=== PATIENT | female | born 1970 | race Caucasian/White ===

== ENCOUNTER 2016-11-18 20:49 | Emergency (ER) | payer OTHER ==
[~2016-11-18 20:49] MED LIST: BENZ100 PO; CLIN1CAP5 PO; CORTIS10A LEFT EAR; DICL50TA3 PO
[2016-11-18 21:07] VITALS: BP 129/70; PULSE 80; RESP 20; TEMP 98.6; O2SAT 99
--- NOTE | 2016-11-18 21:40 | PD ---
HPI Chief Complaint: Musculoskeletal Complaint Time Seen by Provider: 21:34 Travel History International Travel<30 days: No Contact w/Intl Traveler<30days: No Traveled to known affect area: No History of Present Illness HPI 46-year-old female presents to the emergency department by private transportation for evaluation of left foot pain for a couple of days after twisting the foot and cough. Patient has history of bronchitis and previous pneumonia. Patient does smoke cigarettes. Patient states cough is productive of yellow-green sputum. No fever or chills. Patient denies other injury or other symptoms at this time. Foot pain with palpation and weightbearing as 8/ 10 in intensity. Patient states that pain is isolated to the left lateral mid foot. Patient has noted some swelling but no ecchymosis erythema or increased warmth. Patient is also had no claudication pallor or coolness of the left lower extremity. PFSH Past Medical History Narrative Medical Anemia platelet dysfunction anxiety asthma bronchitis pneumonia hepatitis C lumbar disc disease migraines last period 2014 tonsillectomy tobacco use nursing notes reviewed Anemia: Yes Asthma: Yes Blood Disorders: Yes ("PLATELET DYSFUNCTION, DON'T CLOT WELL") Anxiety: Yes (DX IN 2006) Cancer: No Cardiovascular Problems: No Chest Pain: Yes ("SOMETIMES" STATED 11/18/16) Diminished Hearing: No Endocrine: No Hepatitis: Yes (HEP C) Herniated Disk: Yes ("A COUPLE OF ANNULUS BULGES AND DEGENERATIVE DISCS IN LOWER BACK") Immune Disorder: No Musculoskeletal: No Neurologic: No Psychiatric: No Reproductive: No Respiratory: Yes (BRONCHITIS) Migraines: Yes Pneumonia: Yes (X2) Influenza Vaccination: No ?: Not LMP: "THEY STOPPED IN 2014" : 3 Para: 2 Miscarriage: 1 Past Surgical History Section: Yes (2008) Gynecologic Surgery: Yes (C SECTION) Oral Surgery: Yes (TONSILLECTOMY) Tonsillectomy: Yes Other Surgery: Yes Family History Family Breast Cancer: Yes (SISTER, MOTHER, MATERNAL GRANDMOTHER) Family Myocardial Infarction: Yes (PATERNAL GRANDMOTHER) Family Hypercholesterolemia: Yes (MOTHER) Social History Alcohol Use: Yes (SOCIAL) Tobacco Use: Yes (1 PPD) Substance Use: No Allergies-Medications (Allergen,Severity, Reaction): Coded Allergies: Penicillin (Verified Allergy, Severe, UNKNOWN, 11/18/16) Reported Meds & Prescriptions Reported Meds & Active Scripts Active No Active Prescriptions or Reported Medications Review of Systems Except as stated in HPI: all other systems reviewed are Neg Physical Exam Narrative GENERAL: Well-developed well-nourished female in no acute distress no respiratory distress; triage vital signs values in normal range SKIN: Warm and dry. HEAD: Normocephalic. EYES: No scleral icterus. No injection or drainage. NECK: Supple, trachea midline. No JVD or lymphadenopathy. CARDIOVASCULAR: Regular rate and rhythm without murmurs, gallops, or rubs. RESPIRATORY: Breath sounds equal bilaterally with bilateral wheezing. No accessory muscle use. GASTROINTESTINAL: Abdomen soft, non-tender, nondistended. MUSCULOSKELETAL: No cyanosis, or edema. Left foot no pallor no coolness dorsalis pedis pulse 2+ to palpation no induration no erythema no increased warmth point tenderness to palpation over the fifth metatarsal base proximally and distally extremity is neurovascular tendon intact. BACK: Nontender without obvious deformity. No CVA tenderness. Data Data Last Documented VS Vital Signs Date Time Temp Pulse Resp B/P Pulse Ox O2 Delivery O2 Flow Rate FiO2 11/18/16 21:54 88 18 97 Room Air 11/18/16 21:07 98.6 129/70 Orders Chest, Single Ap (11/18/16 ) Foot, Complete (Uvr1isl) (11/18/16 ) Albuterol-Ipratropium Neb (Duoneb Neb) (11/18/16 21:45) [facility] Medical Decision Making Medical Screen Exam Complete: Yes Emergency Medical Condition: Yes Medical Record Reviewed: Yes Interpretation(s) Last Impressions Foot X-Ray 11/18/16 0000 Signed Impressions: Service Date/Time: Friday, November 18, 2016 21:47 - CONCLUSION: Hallux valgus. Otherwise negative exam. Jesus Manuel Sevilla MD Chest X-Ray 11/18/16 0000 Signed Impressions: Service Date/Time: Friday, November 18, 2016 21:45 - CONCLUSION: The lungs are clear. Jesus Manuel Sevilla MD Differential Diagnosis Exacerbation COPD, bronchitis, pneumonia, tobaccoism foot contusion metatarsal fracture; also to consider CHF ACS Narrative Course X-ray of the left foot x-ray of the chest ordered and DuoNeb updraft 1 ordered @ 22:25 lung sound improved post updraft Diagnosis Primary Impression: Strain of foot, left Qualified Code: S96.912A - Strain of foot, left, initial encounter Additional Impression: Bronchitis Referrals: Primary Care Physician call for appointment Patient Instructions: General Instructions Additional Instructions: Use inhaler as needed for wheezing/shortness of breath associated with bronchitis Complete Medrol dosepak taper; do not use ibuprofen/Advil/Motrin/naproxen/Aleve while taking this medication Increase fluid hydration May use Cas bandage to support left foot intermittently over the next once 2 days do not sleep with Cas bandage in place Elevate foot for comfort Follow-up with your primary care provider Return to the emergency department for any concerns or change in condition Discontinue tobacco use Med/Other Pt SpecificInfo: Prescription(s) given Scripts Albuterol 6.7 GM Inh (Proventil Hfa 6.7 GM Inh)90 Mcg/Act Aer2 Puff INH Q4-6H PRN (SHORTNESS OF BREATH) #1 INHALER Ref 0 Prov:Karla Vega MD 11/18/16 Methylprednisolone Dosepak (Medrol Dosepak)4 Mg Dspk4 Mg PO DIRECTED #1 DSPK Ref 0 Per Pharmacist direction Prov:Karla Vega MD 11/18/16 Disposition: 01 DISCHARGE HOME Condition: Stable Karla Vega MD Nov 18, 2016 21:40
[2016-11-18] MEDS ORDERED: RESP: ALBUTEROL 2.5 MG/IPRATROPIUM 0.5 MG NEB (SCH) NEB ONE (21:45)
[2016-11-18 21:54] VITALS: PULSE 88; RESP 18; O2SAT 97
--- NOTE | 2016-11-18 22:11 | RADHPO ---
EXAM DATE/TIME: 11/18/2016 21:45 [facility] COMPARISON: No previous studies available for comparison. INDICATIONS : Chest pain cough MEDICAL HISTORY : None. SURGICAL HISTORY : None. ENCOUNTER: ACUITY: 2 days PAIN SCORE: 5/10 LOCATION: Bilateral chest FINDINGS: A single view of the chest demonstrates the lungs to be symmetrically aerated without evidence of mas s, infiltrate or effusion. The cardiomediastinal contours are unremarkable. Osseous structures are intact. CONCLUSION: The lungs are clear. Jesus Manuel Sevilla MD on November 18, 2016 at 22:09 Board Certified Radiologist. This report was verified electronically.
--- NOTE | 2016-11-18 22:12 | RADHPO ---
EXAM DATE/TIME: 11/18/2016 21:47 [facility] COMPARISON: No previous studies available for comparison. INDICATIONS : Left foot pain MEDICAL HISTORY : None. SURGICAL HISTORY : None. ENCOUNTER: Initial ACUITY: 2 days PAIN SCORE: 5/10 LOCATION: Left lateral FINDINGS: Bone density is normal. There is moderate hallux valgus deformity without significant arthropathy. No evidence of fracture, dislocation, radiopaque foreign body, or localized soft tissue swelling. CONCLUSION: Hallux valgus. Otherwise negative exam. Jesus Manuel Sevilla MD on November 18, 2016 at 22:10 Board Certified Radiologist. This report was verified electronically.
[2016-11-18] MEDS ORDERED: ALBU6.7H INH (22:26)
[2016-11-18] MEDS ORDERED: MEDR4PAK PO (22:26)
== END 2016-11-18 22:54 | disposition home or self-care (01) ==
LOC: PHED 20:49
DX: S96.912A Strain of unspecified muscle and tendon at ankle and foot level, left foot, initial encounter (principal); J45.909 Unspecified asthma, uncomplicated; F17.210 Nicotine dependence, cigarettes, uncomplicated; X50.0XXA Overexertion from strenuous movement or load, initial encounter
CPT/HCPCS: 71010; 73630; 94664; 99283

== ENCOUNTER 2017-02-19 06:52 | Observation (INO) | payer OTHER ==
[~2017-02-19] VITALS: Ht 172.7 cm; Wt 77.0 kg
[2017-02-19] VITALS (11 sets, daily range): BP systolic 115–139; BP diastolic 64–92; PULSE 70–95; RESP 16–20; TEMP 96.3–98.8; O2SAT 94–97
[~2017-02-19 06:52] MED LIST changes: +ALBU6.7H INH; -BENZ100 PO; -CLIN1CAP5 PO; -CORTIS10A LEFT EAR; -DICL50TA3 PO; +MEDR4PAK PO
[2017-02-19] MEDS ORDERED: ASPIRIN 81 MG CHEW TAB PO ONE (07:15)
[2017-02-19] MEDS ORDERED: methylPREDNISolone SOD SUCC 125 MG/2 ML VIAL IV PUSH ONE (07:15)
[2017-02-19 07:31] LABS: AUTOMATED NEUTROPHIL # 2.7 TH/MM3 (1.8-7.7); BASOPHIL % 0.4 % (0.0-2.0); EOSINOPHIL # 0.1 TH/MM3 (0-0.4); EOSINOPHIL % 1.9 % (0.0-4.0); HEMATOCRIT 38.8 % (35.0-46.0); HEMO FLAGS DIFF FINAL; LYMPHOCYTE # 2.2 TH/MM3 (1.0-4.8); MEAN CELL VOLUME 88.3 FL (80.0-100.0); MEAN CORPUSCULAR HEMOGLOBIN 30.7 PG (27.0-34.0); MEAN CORPUSCULAR HGB CONC 34.7 % (32.0-36.0); NEUT % 46.7 % (16.0-70.0); PLATELET COUNT 304 TH/MM3 (150-450); RED BLOOD COUNT 4.39 MIL/MM3 (4.00-5.30); RED CELL DISTRIBUTION WIDTH 13.5 % (11.6-17.2); WHITE BLOOD COUNT 5.9 TH/MM3 (4.0-11.0)
[2017-02-19] MEDS: RESP: ALBUTEROL 2.5 MG/IPRATROPIUM 0.5 MG NEB (SCH) INH (07:31)
[2017-02-19 07:41] LABS: APTT (PATIENT) 29.2 SEC (24.3-30.1); PROTHROMBIN TIME - PATIENT 10.8 SEC (9.8-11.6)
[2017-02-19 07:51] LABS: ALT (GPT) 77 U/L (10-53); ANION GAP 7 MEQ/L (5-15); AST (GOT) 67 U/L (15-37); BICARBONATE 26.6 MEQ/L (21.0-32.0); BLOOD UREA NITROGEN 19 MG/DL (7-18); CHLORIDE 102 MEQ/L (98-107); GLOMERULAR FILTRATION RATE 67 ML/MIN (>89); MAGNESIUM 2.1 MG/DL (1.5-2.5); POTASSIUM 3.7 MEQ/L (3.5-5.1); SODIUM (NA) 136 MEQ/L (136-145)
[2017-02-19 07:55] LABS: ALKALINE PHOSPHATASE 125 U/L (45-117); TOTAL BILIRUBIN ADULT 0.4 MG/DL (0.2-1.0)
--- NOTE | 2017-02-19 08:09 | RADRPT ---
EXAM DATE/TIME: 02/19/2017 07:47 [facility] COMPARISON: CHEST SINGLE AP, November 18, 2016, 21:45. INDICATIONS : Chest pain and shortness of breath. MEDICAL HISTORY : None. SURGICAL HISTORY : None. ENCOUNTER: Initial ACUITY: 2 days PAIN SCORE: 9/10 LOCATION: Bilateral chest FINDINGS: A single view of the chest demonstrates the lungs to be symmetrically aerated with some linear densit y in the right upper lobe possibly representing scarring. Lungs are otherwise clear. The cardiomedia stinal contours are unremarkable. Osseous structures are intact with some degenerative spurring of t he dorsal spine. CONCLUSION: Faint linear density in the right upper lung likely represents some parenchymal scarring. Lungs are otherwise clear. Zoltan Cotter MD on February 19, 2017 at 8:01 Board Certified Radiologist. This report was verified electronically.
--- NOTE | 2017-02-19 08:19 | PD ---
HPI Chief Complaint: Chest Pain Time Seen by Provider: 07:05 Travel History International Travel<30 days: No Contact w/Intl Traveler<30days: No Traveled to known affect area: No History of Present Illness HPI This is a 46-year-old female who presents to the emergency department with chest discomfort that started yesterday and has been intermittent, in the center of her chest described as a pressure, radiating to her back associated with some shortness of breath. She says over the past 3 weeks she's been increasingly weak and lethargic and has trouble staying awake. She thought that maybe she had a blockage in one of the vessels in her neck because she's been having some intermittent neck pains on the left side. She does smoke cigarettes. Her father had a heart attack in his 50s. She denies any history of hypertension, hyperlipidemia or diabetes. She says she used to use IV drugs over 10 years ago. PFSH Past Medical History Anemia: Yes Asthma: Yes Blood Disorders: Yes ("PLATELET DYSFUNCTION, DON'T CLOT WELL") Anxiety: Yes (DX IN 2006) Cancer: No Cardiovascular Problems: No Chest Pain: Yes ("SOMETIMES" STATED 11/18/16) Diminished Hearing: No Endocrine: No Hepatitis: Yes (HEP C) Herniated Disk: Yes ("A COUPLE OF ANNULUS BULGES AND DEGENERATIVE DISCS IN LOWER BACK") Immune Disorder: No Musculoskeletal: No Neurologic: No Psychiatric: No Reproductive: No Respiratory: Yes (BRONCHITIS) Migraines: Yes Pneumonia: Yes (X2) ?: Not LMP: LAST YEAR Menopausal: Yes : 3 Para: 2 Miscarriage: 1 Past Surgical History Section: Yes (2008) Gynecologic Surgery: Yes (C SECTION) Oral Surgery: Yes (TONSILLECTOMY) Tonsillectomy: Yes Other Surgery: Yes Family History Family Myocardial Infarction: Yes (FATHER, GRANDMOTHER) Family Hypercholesterolemia: Yes (MOTHER) Social History Alcohol Use: No (PT STATES SHE QUIT) Tobacco Use: Yes (1 PPD) Substance Use: No Allergies-Medications (Allergen,Severity, Reaction): Coded Allergies: Penicillin (Verified Allergy, Severe, UNKNOWN, 02/19/17) Reported Meds & Prescriptions Reported Meds & Active Scripts Active No Active Prescriptions or Reported Medications Review of Systems Except as stated in HPI: all other systems reviewed are Neg Physical Exam Narrative GENERAL:Well appearing, no acute distress SKIN: Focused skin assessment warm and dry. HEAD: Atraumatic. Normocephalic. EYES: Pupils equal and round. No injection or drainage. ENT: Moist mucous membranes NECK: Trachea midline. CARDIOVASCULAR: Regular rate and rhythm. No murmur appreciated. RESPIRATORY: Mild diffuse wheezing GASTROINTESTINAL: Abdomen soft, non-tender, nondistended. MUSCULOSKELETAL: No obvious deformities. NEUROLOGICAL: Awake and alert. No obvious cranial nerve deficits. Moving all extremities. PSYCHIATRIC: Appropriate mood and affect; insight and judgment normal. Data Data Last Documented VS Vital Signs Date Time Temp Pulse Resp B/P Pulse Ox O2 Delivery O2 Flow Rate FiO2 02/19/17 07:09 136/92 124/78 02/19/17 07:08 20 97 02/19/17 07:08 Room Air 02/19/17 07:04 87 02/19/17 06:57 98.2 Orders Electrocardiogram (02/19/17 07:05) Complete Blood Count With Diff (02/19/17 07:05) Comprehensive Metabolic Panel (02/19/17 07:05) Magnesium (Mg) (02/19/17 07:05) Prothrombin Time / Inr (Pt) (02/19/17 07:05) Act Partial Throm Time (Ptt) (02/19/17 07:05) Troponin I (02/19/17 07:05) Chest, Single Ap (02/19/17 07:05) Ecg Monitoring (02/19/17 07:05) Bilateral Bp Monitoring (02/19/17 07:05) Iv Access Insert/Monitor (02/19/17 07:05) Oximetry (02/19/17 07:05) Oxygen Administration (02/19/17 07:05) Aspirin Chew (Aspirin Chew) (02/19/17 07:15) Sodium Chloride 0.9% Flush (Ns Flush) (02/19/17 07:15) Methylprednisolone So Succ Inj (Solumedr (02/19/17 07:15) Albuterol-Ipratropium Neb (Duoneb Neb) (02/19/17 07:15) Labs Laboratory Tests Test 02/19/17 07:10 White Blood Count 5.9 TH/MM3 Red Blood Count 4.39 MIL/MM3 Hemoglobin 13.5 GM/DL Hematocrit 38.8 % Mean Corpuscular Volume 88.3 FL Mean Corpuscular Hemoglobin 30.7 PG Mean Corpuscular Hemoglobin 34.7 % Concent Red Cell Distribution Width 13.5 % Platelet Count 304 TH/MM3 Mean Platelet Volume 7.5 FL Neutrophils (%) (Auto) 46.7 % Lymphocytes (%) (Auto) 38.0 % Monocytes (%) (Auto) 13.0 % Eosinophils (%) (Auto) 1.9 % Basophils (%) (Auto) 0.4 % Neutrophils # (Auto) 2.7 TH/MM3 Lymphocytes # (Auto) 2.2 TH/MM3 Monocytes # (Auto) 0.8 TH/MM3 Eosinophils # (Auto) 0.1 TH/MM3 Basophils # (Auto) 0.0 TH/MM3 CBC Comment DIFF FINAL Differential Comment Prothrombin Time 10.8 SEC Prothromb Time International 1.0 RATIO Ratio Activated Partial 29.2 SEC Thromboplast Time Sodium Level 136 MEQ/L Potassium Level 3.7 MEQ/L Chloride Level 102 MEQ/L Carbon Dioxide Level 26.6 MEQ/L Anion Gap 7 MEQ/L Blood Urea Nitrogen 19 MG/DL Creatinine 0.91 MG/DL Estimat Glomerular Filtration 67 ML/MIN Rate Random Glucose 90 MG/DL Calcium Level 9.6 MG/DL Magnesium Level 2.1 MG/DL Total Bilirubin 0.4 MG/DL Aspartate Amino Transf 67 U/L (AST/SGOT) Alanine Aminotransferase 77 U/L (ALT/SGPT) Alkaline Phosphatase 125 U/L Troponin I LESS THAN 0.02 NG/ML Total Protein 8.1 GM/DL Albumin 3.7 GM/DL MDM Medical Decision Making Medical Screen Exam Complete: Yes Emergency Medical Condition: Yes Interpretation(s) Afebrile, no tachycardia, mild hypertension EKG: Normal sinus rhythm with no ST changes No leukocytosis Mild transaminitis Troponin is normal Chest x-ray: No acute process Differential Diagnosis Acute coronary syndrome, bronchitis, pneumonia, aortic dissection, pulmonary embolism Narrative Course This is a 46-year-old female who presents to the emergency department with chest discomfort that's been present for 2 days. She was placed on a monitor and an IV was established. Labs are obtained which were all reassuring including a normal troponin. Her EKG is nonischemic. I suspect the etiology of her symptoms is respiratory. She received serial bronchodilator treatments and steroids in her shortness of breath improved but she reports that her chest pain persists. I discussed with her her heart score which is one, placing her at low risk for adverse event in the next 6 weeks. I offered her observation versus discharge. She would prefer to be observed and obtain stress testing which I think is reasonable given the intractability of her symptoms and her family history. Patient will be placed in the chest pain center for risk stratification. Diagnosis Primary Impression: Chest pain Qualified Code: R07.9 - Chest pain, unspecified type Additional Impression: Bronchitis Admitting Information Admitting Physician Requests: Observation Scripts No Active Prescriptions or Reported Meds Isamar Babin MD February 19, 2017 08:19
[2017-02-19] MEDS ORDERED: NITROGLYCERIN 0.4 MG SL 25 TABS/BTL SL PRN (10:45)
[2017-02-19] MEDS ORDERED: ACETAMINOPHEN 500 MG CPLT PO PRN (10:45)
[2017-02-19] MEDS ORDERED: ONDANSETRON HCL 4 MG/2 ML VIAL IV PRN (10:45)
--- NOTE | 2017-02-19 11:47 | EKG ---
Date Performed: 02/19/2017 Time Performed: 07:01:38 PTAGE: 46 years EKG: Sinus rhythm NORMAL ECG PREVIOUS TRACING : 03/02/2015 11.44 No significant change from previous tracing noted. DOCTOR: Burke Finn Interpretating Date/Time 02/19/2017 11:45:45
[2017-02-19 12:00] LABS: CREATINE KINASE 143 U/L (26-192)
[2017-02-19 12:13] LABS: CKMB 3.3 NG/ML (0.5-3.6)
--- NOTE | 2017-02-19 12:49 | HHI.HP ---
HPI Primary Care Physician No Primary Care Physician Chief Complaint Chest pain History of Present Illness 46-year-old female presents to the emergency room for further evaluation of chest discomfort. She is vague with her symptoms and falls asleep during conversation. States early this morning she experienced substernal chest discomfort described as stabbing. No radiation. Associated symptoms included shortness of breath and it hurt to take a deep breath. No nausea or diaphoresis. She has never had chest pain in the past. Pain has been constant since this morning. Recently been coughing for 1 week she is concerned she has pneumonia. No known relieving factors. (Miguelina Morales) Review of Systems General: No fatigue,weakness, fever, chills. Endorses a cough for 1 week and is concerned she has pneumonia. HEENT: No ALANIS, no nasal congestion or drainage CV: As stated above. Continues to have substernal chest discomfort unable to give a pain score. No palpitations. RESP: No current shortness of breath. Cough 1 week. Continues to smoke. Endorses history of bronchitis. Denies asthma, wheeze, or hemoptysis. GI: No nausea, vomiting, bowel changes, diarrhea, constipation, pain, distention. : No dysuria, urgency, frequency MS: No discomfort or change in ROM NEURO: No change in memory, dizziness, difficulty with balance, LOC, motor/ sensory deficits PSYCH: No anxiety or depression SKIN: No rashes, no concerning lesions (Miguelina Morales) Past Family Social History Allergies: Coded Allergies: Penicillin (Verified Allergy, Severe, UNKNOWN, 02/19/17) Past Medical History Anemia, asthma, anxiety, hepatitis C, migraines, bronchitis, herniated disc, past IV drug abuse Past Surgical History Tonsillectomy, mandible fracture repair, Reported Medications Active No Active Prescriptions or Reported Medications Active Ordered Medications Current Medications Medications (Trade) Dose Ordered Sig/Yari Route Start Time Stop Time Status Last Admin (Tylenol) 500 mg Q4H PRN PO 02/19/17 10:45 (Zofran Inj) 4 mg Q6H PRN IV 02/19/17 10:45 (Nitrostat Sl) 0.4 mg Q5M PRN SL 02/19/17 10:45 (Aspirin) 325 mg DAILY PO 02/20/17 09:00 Family History Noncontributory for early onset cardiovascular disease Social History No known diabetes, hypertension, or hyperlipidemiahas not seen a primary care provider in "quite some time." Smokes one pack cigarettes daily for most of her adult life. Remote IV drug abuse denies any illegal drug use at present time. Denies any alcohol. She is currently unemployed. Past cardiac testing No formal cardiac testing. (Miguelina Morales) Physical Exam Vital Signs Vital Signs Date Time Temp Pulse Resp B/P Pulse Ox O2 Delivery O2 Flow Rate FiO2 02/19/17 11:50 96 21 02/19/17 07:09 136/92 124/78 02/19/17 07:08 20 97 02/19/17 07:08 97 Room Air 02/19/17 07:04 87 20 97 02/19/17 06:57 98.2 90 20 136/92 97 Physical Exam GENERAL: Alert WN, WD, NAD, female who appears older than stated age HEAD: NC, AT ENT: Mucous membranes pink and moist NECK: Supple, no masses, trachea midline CV: RRR, without murmur, rub, gallop, no JVD, S1-S2 no S3-S4. RESP: Clear lungs throughout bilateral, no crackles, wheeze, rhonchi, symmetrical chest rise, nonlabored, able to speak in full sentences. ABD: Soft, NT, ND, no masses, positive bowel tones EXT: Pulses +14, sue bilateral lower extremities, no dependent edema MS: Normal tone 4 extremities, nontender, no obvious deformities, full range of motion NEURO: CN II through CN XII grossly intact, motor strength 5/5, gait WNL PSYCH: A+O 3, pleasant affect, appropriate speech, appropriate mood and affect , insight and judgment SKIN: Normal turgor, normal texture, no lesions, no rashes, sluggish brisk cap refill Laboratory Laboratory Tests Test 02/19/17 02/19/17 07:10 11:09 White Blood Count 5.9 Red Blood Count 4.39 Hemoglobin 13.5 Hematocrit 38.8 Mean Corpuscular Volume 88.3 Mean Corpuscular Hemoglobin 30.7 Mean Corpuscular Hemoglobin 34.7 Concent Red Cell Distribution Width 13.5 Platelet Count 304 Mean Platelet Volume 7.5 Neutrophils (%) (Auto) 46.7 Lymphocytes (%) (Auto) 38.0 Monocytes (%) (Auto) 13.0 Eosinophils (%) (Auto) 1.9 Basophils (%) (Auto) 0.4 Neutrophils # (Auto) 2.7 Lymphocytes # (Auto) 2.2 Monocytes # (Auto) 0.8 Eosinophils # (Auto) 0.1 Basophils # (Auto) 0.0 CBC Comment DIFF FINAL Differential Comment Prothrombin Time 10.8 Prothromb Time International 1.0 Ratio Activated Partial 29.2 Thromboplast Time Sodium Level 136 Potassium Level 3.7 Chloride Level 102 Carbon Dioxide Level 26.6 Anion Gap 7 Blood Urea Nitrogen 19 Creatinine 0.91 Estimat Glomerular Filtration 67 Rate Random Glucose 90 Calcium Level 9.6 Magnesium Level 2.1 Total Bilirubin 0.4 Aspartate Amino Transf 67 (AST/SGOT) Alanine Aminotransferase 77 (ALT/SGPT) Alkaline Phosphatase 125 Troponin I LESS THAN 0.02 LESS THAN 0.02 Total Protein 8.1 Albumin 3.7 Lipase 137 Total Creatine Kinase 143 Creatine Kinase MB 3.3 (Miguelina Morales) Result Diagram: 02/19/17 0710 02/19/1710 Imaging Last Impressions Chest X-Ray 02/19/17704 Signed Impressions: Service Date/Time: Sunday, February 19, 2017 07:47 - CONCLUSION: Faint linear density in the right upper lung likely represents some parenchymal scarring. Lungs are otherwise clear. Zoltan Cotter MD Course EKG First EKG shows normal sinus rhythm, normal axis, with no ST or T-segment changes (Miguelina Morales) Assessment and Plan Assessment and Plan Chest painadmitted to chest pain center. Will complete 3 sets of EKGs and cardiac enzymes. Will be seen and evaluated by Dr. Bran Sidhu. (Miguelina Morales) Assessment and Plan Agree with above. Exam essentially normal. Complains of severe back pain radiating to abdomen. Will check CTA of aorta (Bran Sidhu MD) Miguelina Morales February 19, 2017 12:49 Bran Sidhu MD February 19, 2017 14:31
[2017-02-19 15:08] LABS: CREATINE KINASE 116 U/L (26-192)
[2017-02-19 15:20] LABS: CKMB 2.5 NG/ML (0.5-3.6)
[2017-02-19] MEDS: MORPHINE SULFATE 4 MG/ML INJ IV PUSH PRN ×3 (15:40→23:11)
[2017-02-19] MEDS: SODIUM CHLORIDE 0.9% FLUSH 10 ML FLUSH IVF PRN ×2 (15:41→18:45)
[2017-02-19] MEDS ORDERED: IOHEXOL 350 MG/ML 10 ML VIAL (for RAD DIAG) IV ONE (17:09)
--- NOTE | 2017-02-19 17:14 | RADRPT ---
EXAM DATE/TIME: 02/19/2017 16:39 [facility] COMPARISON: No previous studies available for comparison. INDICATIONS : Coughing with chest and abdominal pain x 3 days IV CONTRAST: 75 cc Omnipaque 350 (iohexol) IV ; Cumulative dose for multiple exams. RADIATION DOSE: 7.35 CTDIvol (mGy) ; Combined studies MEDICAL HISTORY : Hepatitis C. SURGICAL HISTORY : None. ENCOUNTER: Initial ACUITY: 2 days PAIN SCALE: 3/10 LOCATION: chest TECHNIQUE: Volumetric scanning was performed using a multi-row detector CT scanner. The data was post processed with a variety of visualization algorithms including full volume maximum intensity projection, multi -planar sliding thin slab reformation, curved planar reformation, and surface rendering techniques. Using automated exposure control and adjustment of the mA and/or kV according to patient size, radiat ion dose was kept as low as reasonably achievable to obtain optimal diagnostic quality images. FINDINGS: Thoracic/abdominal aorta: The thoracic and abdominal aorta is normal in caliber and course. No aneurysm, stenosis, or dissectio n. No surrounding fluid collection. Heart and mediastinum: The heart is normal in size. Aorta and pulmonary arteries are normal in caliber. No adenopathy. Lung parenchyma: Biapical groundglass infiltrates observed. These are somewhat nodular in appearance. It is more prono unced on the right. Remaining lungs are clear. Other structures: Scattered colonic diverticuli without acute inflammation. Abdominal viscera are otherwise unremarkabl e. CONCLUSION: 1. Biapical groundglass infiltrates. Likely infectious in etiology. 2. Normal aorta. 3. Scattered colonic diverticuli without acute inflammation. Jesus Manuel Beasley Jr., MD on February 19, 2017 at 17:08 Board Certified Radiologist. This report was verified electronically.
[2017-02-19] MEDS: SODIUM CHLORIDE 0.9% FLUSH 10 ML FLUSH IV FLUSH SCH (23:11)
[2017-02-20 03:32] VITALS: PULSE 78
[2017-02-20 04:00] VITALS: BP 108/59; PULSE 78; RESP 24; TEMP 98.2; O2SAT 95
[2017-02-20 07:04] VITALS: PULSE 73
[2017-02-20 08:16] VITALS: BP 95/55; PULSE 60; RESP 17; TEMP 97.3; O2SAT 94
[2017-02-20] MEDS: SODIUM CHLORIDE 0.9% FLUSH 10 ML FLUSH IV FLUSH SCH (09:00)
[2017-02-20] MEDS ORDERED: ASPIRIN 325 MG TAB PO SCH (09:00)
[2017-02-20 11:40] VITALS: BP 108/70; PULSE 75; RESP 19; TEMP 98; O2SAT 96
[2017-02-20] MEDS: MORPHINE SULFATE 4 MG/ML INJ IV PUSH PRN (11:54)
--- NOTE | 2017-02-20 14:05 | HHI.DCPOC ---
Discharge Care Plan Diagnosis: (1) Atypical chest pain (2) Tobacco abuse Goals to Promote Your Health * To prevent worsening of your condition and complications * To maintain your health at the optimal level Directions to Meet Your Goals Take your medications as prescribed Follow your dietary instruction Follow activity as directed Keep your appointments as scheduled Take your immunizations and boosters as scheduled If your symptoms worsen call your PCP, if no PCP go to Urgent Care Center or Emergency Room Smoking is Dangerous to Your Health. Avoid second hand smoke Call the 24-hour hour crisis hotline for domestic abuse at Miguelina Morales February 20, 2017 14:05
--- NOTE | 2017-02-21 10:56 | TR ---
Date Performed: 02/20/2017 Time Performed: 12:11:27 DOCTOR: Saman Chang DRUG LIST: CLINICAL HISTORY: REASON FOR TEST: Chest pain REASON FOR ENDING: OBSERVATION: CONCLUSION: Uli protocol completed. Stopped sec to reaching target heart rate and leg fatigue. Maximum YN=712 % Target HR Achieved=86.0% Maximum NO=206/90 Total Exercise Time=8:31. No reprod ches t discomfort. No ectopy. No st t seg changes to sugg ischemia. Normal bp response. Good exercise tole alice. Recovery quick and unremarkable. COMMENTS: Conclusion: Normal treadmill exercise. No evidence of ischemia.
--- NOTE | 2017-02-21 15:15 | EKG ---
Date Performed: 02/19/2017 Time Performed: 10:57:48 PTAGE: 46 years EKG: Sinus rhythm WITH SINUS ARRHYTHMIA NORMAL ECG PREVIOUS TRACING : 02/19/2017 07.01 Since previous tracing, no significant change noted DOCTOR: Saman Chang Interpretating Date/Time 02/21/2017 15:14:16
--- NOTE | 2017-02-21 15:15 | EKG ---
Date Performed: 02/19/2017 Time Performed: 14:20:20 PTAGE: 46 years EKG: Sinus rhythm WITH MARKED SINUS ARRHYTHMIA BORDERLINE ECG Since PREVIOUS TRACING , no significant change noted DOCTOR: Saman Chang Interpretating Date/Time 02/21/2017 15:13:27
== END 2017-02-20 14:31 | disposition home or self-care (01) ==
LOC: NEPC 06:52 → NEDA 08:15 → NEPFCDU 14:06
PROVIDERS: ADMIT Internal Medicine Cardiovascular Disease; ATTEND Internal Medicine Cardiovascular Disease
DX: R07.9 Chest pain, unspecified (principal); D64.9 Anemia, unspecified; F41.9 Anxiety disorder, unspecified; B19.20 Unspecified viral hepatitis C without hepatic coma; F17.210 Nicotine dependence, cigarettes, uncomplicated; R06.02 Shortness of breath; J40 Bronchitis, not specified as acute or chronic; M54.9 Dorsalgia, unspecified; I49.8 Other specified cardiac arrhythmias
CPT/HCPCS: 71010; 71275; 74174; 80053; 82550; 82552; 83690; 83735; 84443; 84484; 85025; 85610; 85730; 93005; 93017; 94640; 94664; 96374; 99285; G0378; J2270; J2930; Q9967; 76937